=== PATIENT | male | born 1990 | race Caucasian/White ===

== ENCOUNTER 2019-11-05 15:53 | Observation (INO) | payer OTHER, SELFPAY ==
[2019-11-05] VITALS (14 sets, daily range): BP systolic 125–166; BP diastolic 65–92; PULSE 73–89; RESP 13–23; TEMP 36.5–36.8; O2SAT 95–99; BMI 28.2
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
--- NOTE | 2019-11-05 16:23 | ED_ITS ---
HPI - Trauma <JOANNE Morse- - Last Filed: 11/05/19 21:12> General Chief Complaint: Trauma Stated Complaint: large pipe fell on left leg Time Seen by Provider: 11/05/19 16:00 Source: patient Mode of arrival: Ambulatory Limitations: no limitations History of Present Illness HPI narrative: The patient is a 29-year-old male current some day smoker who has a history of surgery to his left to presents with a chief complaint of a large pipe having fallen on his left leg. He states that approximately 600 lb 9 ft pipe fell just below his left knee at work, then it rolled up onto his chest and abdomen. He denies any abdominal pain, chest pain or shortness of breath. He ambulates into the emergency department without assistance. He does not know when his last tetanus vaccination was. He has not taken anything for pain or applied ice. He states he has an abrasion just below his left knee where the initial impact was. The patient states that when he fell backwards, heal on its backside, did not hit his head, denies any neck or back pain. This accident happened approximately 3:00 p.m.. Related Data Home Medications Medication Instructions Recorded Confirmed No Known Home Medications 11/05/19 11/05/19 Allergies Allergy/AdvReac Type Severity Reaction Status Date / Time No Known Drug Allergies Allergy Verified 11/05/19 18:44 Review of Systems <DALE Morse - Last Filed: 11/05/19 21:12> Review of Systems Narrative: GENERAL: Denies chills, fatigue, malaise, fever, sweats. HEENT: Denies sinus pain, ear pain, sore throat, difficulty swallowing, dizziness. RESPIRATORY: Denies dyspnea, cough, wheezing, hemoptysis, sputum. CARDIOVASCULAR: Denies chest pain, palpitations, orthopnea, edema, GASTROINTESTINAL: Denies nausea, vomiting, abdominal pain, diarrhea, constipation, melena. : Denies dysuria, frequency, incontinence, hematuria, urinary retention. MUSCULOSKELETAL: See HPI SKIN: See HPI NEUROLOGIC: Denies weakness, headache, numbness, change in speech, confusion, seizures, incoordination. PSYCHIATRIC: No concerning psychosocial issues. 12 point review of systems is negative except for those stated above Patient History <DALE MorsePRISCILLA - Last Filed: 11/05/19 21:12> Medical History (Updated 11/06/19 @ 00:17 by FAVIOLA Ramachandran) No significant past medical history (Acute) Surgical History History of foot surgery (Acute) History of surgery on left wrist (Acute) Social History household members: significant other and children Smoking Status: Current some day smoker alcohol intake: current Smoking Status: Current some day smoker alcohol intake frequency: holidays/special occasions only Substance Use Type: does not use Exam <ADIS Morse - Last Filed: 11/05/19 21:12> Narrative Exam Narrative: GENERAL: This is a well-nourished, well-developed patient, in no acute distress HEAD: Atraumatic. Normocephalic. No temporal or scalp tenderness. EYES: Pupils equal round and reactive. Extraocular motions intact. No scleral icterus. No injection or drainage. ENT: Nose without bleeding, purulent drainage or septal hematoma. Throat without erythema, tonsillar hypertrophy or exudate. Uvula midline. Airway patent. NECK: Trachea midline. No JVD or lymphadenopathy. Supple, nontender, no meningeal signs. CARDIOVASCULAR: Regular rate and rhythm RESPIRATORY: Clear to auscultation. Breath sounds equal bilaterally. No wheezes, rales, or rhonchi. No cough. No increased respiratory effort. No accessory muscle use. GASTROINTESTINAL: Abdomen soft, non-tender, nondistended. No hepato- splenomegaly, or palpable masses. No guarding. No hematomas or visible bruising. Active bowel sounds all 4 quadrants. EXTREMITIES: Abrasion as noted on left knee. General pain to palpation left knee left calf muscle. Compartments are soft to palpation, positive pedal pulses, capillary refill less than 2 seconds left foot. Able to flex extend pronate supinate left ankle. Ecchymosis noted on distal superior gastroc area. Sensation intact throughout left lower leg. BACK: Nontender without deformity or crepitance. No flank tenderness. NEURO: AOx3. SKIN: 0 1 x 2 cm abrasion noted distal to left knee anterior aspect. Initial Vital Signs Initial Vital Signs: Vital Signs Temperature 97.7 F 11/05/19 16:05 Pulse Rate 84 09/24/20 16:05 Respiratory Rate 11/05/19 16:05 Blood Pressure 166/86 H 11/05/19 16:05 Pulse Oximetry 97 11/05/19 16:05 <Lex Perez MD - Last Filed: 11/06/19 00:31> Initial Vital Signs Initial Vital Signs: Vital Signs Temperature 97.7 F 11/05/19 16:05 Pulse Rate 84 11/05/19 16:05 Respiratory Rate 11/05/19 16:05 Blood Pressure 166/86 H 11/05/19 16:05 Pulse Oximetry 97 11/05/19 16:05 Scores <ADIS Morse - Last Filed: 11/05/19 21:12> GCS [place] coma scale eye opening: Spontaneous [place] coma scale verbal response: Orientated Gustavo coma scale motor response: Obey commands Gustavo coma scale total score: 15 Course <ADIS Morse - Last Filed: 11/05/19 21:12> Orders Ordered: ED Orders 11/05/19 16:09 XR tibia fibula LT 2V Stat 11/05/19 16:10 XR chest 1V Stat 11/05/19 16:20 Complete Blood Count AUTO DIFF Stat Comprehensive Metabolic Panel Stat Creatine Kinase Stat Ethanol (ETOH) Stat Lactate (Lactic Acid) Urgent Lipase Stat Partial Thromboplastin Time Stat Prothrombin Time INR Stat Type and Screen Stat 11/05/19 19:48 Creatine Kinase Stat 11/05/19 20:10 COVID19 -ED/INPAT/OR/L&D Stat Acetaminophen (Tylenol) 650 mg PO Q6HR PRN PRN Reason: Fever/Mild Pain (1-3) Bisacodyl (Dulcolax) 10 mg RI DAILY PRN PRN Reason: Constipation Cyclobenzaprine HCl (Flexeril) 10 mg PO TID PRN PRN Reason: Muscle Spasm Docusate Sodium (Colace) 100 mg PO BID ESME Enoxaparin Sodium (Lovenox) 40 mg SUBCUT DAILY REPLACED BY [facility] Sodium Chloride (Normal Saline 0.9%) 1,000 mls @ 125 mls/hr IV CONT ESME Morphine Sulfate (Morphine) 2 mg IV Q4HR PRN PRN Reason: Pain, Moderate (4-6) Morphine Sulfate (Morphine) 4 mg IV Q4HR PRN PRN Reason: Pain, Severe (7-10) Naloxone HCl (Narcan) 0.2 mg IV Q2MIN PRN PRN Reason: Opiate Reversal Ondansetron HCl (Zofran) 4 mg IV Q8HR PRN PRN Reason: Nausea And Vomiting Oxycodone/Acetaminophen (Percocet 5/325) 1 tab PO Q4HR PRN PRN Reason: Pain, Moderate (4-6) Oxycodone/Acetaminophen (Percocet 5/325) 2 tab PO Q4HR PRN PRN Reason: Pain, Severe (7-10) Discontinued Medications Cyclobenzaprine HCl (Flexeril) 10 mg PO NOW ONE Stop: 11/05/19 17:38 Last Admin: 11/05/19 17:58 Dose: 10 mg Documented by: SILVIANO Diphtheria/Tetanus/Acell Pertussis (Adacel) 0.5 ml IM .ONCE ONE Stop: 11/05/19 16:10 Last Admin: 11/05/19 17:00 Dose: 0.5 ml Documented by: SANTOSH Sodium Chloride (Normal Saline 0.9%) 1,000 mls @ 1,000 mls/hr IV BOLUS ONE Stop: 11/05/19 17:18 Last Infusion: 11/05/19 18:35 Dose: 0 mls/hr Documented by: Admin: 11/05/19 16:59 Dose: 1,000 mls/hr Documented by: SANTOSH Sodium Chloride (Normal Saline 0.9%) 1,000 mls @ 1,000 mls/hr IV BOLUS ONE Stop: 11/05/19 18:36 Last Infusion: 11/05/19 19:36 Dose: 0 mls/hr Documented by: Admin: 11/05/19 18:16 Dose: 1,000 mls/hr Documented by: SANTOSH Sodium Chloride (Normal Saline 0.9%) 1,000 mls @ 250 mls/hr IV CONT ESME Stop: 11/05/19 22:48 Last Infusion: 11/05/19 22:10 Dose: 250 mls/hr Documented by: Admin: 11/05/19 20:20 Dose: 250 mls/hr Documented by: SANTOSH Morphine Sulfate (Morphine) 4 mg IV NOW ONE Stop: 11/05/19 17:38 Last Admin: 11/05/19 17:58 Dose: 4 mg Documented by: SILVIANO Morphine Sulfate (Morphine) 4 mg IV NOW ONE Stop: 11/05/19 20:10 Last Admin: 11/05/19 20:19 Dose: 4 mg Documented by: SANTOSH Vital Signs Vital signs: Vital Signs - 8 hr 11/05/19 17:00 11/05/19 17:30 11/05/19 18:00 Pulse Rate 73 78 78 Respiratory Rate 13 21 20 Blood Pressure 142/87 H 145/92 H 136/89 Pulse Oximetry 99 99 99 11/05/19 18:30 11/05/19 19:00 11/05/19 19:30 Pulse Rate 74 79 82 Respiratory Rate 19 16 20 Blood Pressure 136/82 144/88 H 145/82 H Pulse Oximetry 99 99 99 11/05/19 20:00 11/05/19 20:30 11/05/19 21:00 Pulse Rate 89 79 83 Respiratory Rate 17 23 18 Blood Pressure 145/85 H 129/85 Pulse Oximetry 98 97 97 11/05/19 21:01 Pulse Rate 76 Respiratory Rate 19 Blood Pressure 125/66 Pulse Oximetry 98 <Lex Perez MD - Last Filed: 11/06/19 00:31> Orders Ordered: ED Orders 11/05/19 16:09 XR tibia fibula LT 2V Stat 11/05/19 16:10 XR chest 1V Stat 11/05/19 16:20 Complete Blood Count AUTO DIFF Stat Comprehensive Metabolic Panel Stat Creatine Kinase Stat Ethanol (ETOH) Stat Lactate (Lactic Acid) Urgent Lipase Stat Partial Thromboplastin Time Stat Prothrombin Time INR Stat Type and Screen Stat 11/05/19 19:48 Creatine Kinase Stat 11/05/19 20:10 COVID19 -ED/INPAT/OR/L&D Stat Acetaminophen (Tylenol) 650 mg PO Q6HR PRN PRN Reason: Fever/Mild Pain (1-3) Bisacodyl (Dulcolax) 10 mg RI DAILY PRN PRN Reason: Constipation Cyclobenzaprine HCl (Flexeril) 10 mg PO TID PRN PRN Reason: Muscle Spasm Docusate Sodium (Colace) 100 mg PO BID ESME Enoxaparin Sodium (Lovenox) 40 mg SUBCUT DAILY REPLACED BY [facility] Sodium Chloride (Normal Saline 0.9%) 1,000 mls @ 125 mls/hr IV CONT ESME Morphine Sulfate (Morphine) 2 mg IV Q4HR PRN PRN Reason: Pain, Moderate (4-6) Morphine Sulfate (Morphine) 4 mg IV Q4HR PRN PRN Reason: Pain, Severe (7-10) Naloxone HCl (Narcan) 0.2 mg IV Q2MIN PRN PRN Reason: Opiate Reversal Ondansetron HCl (Zofran) 4 mg IV Q8HR PRN PRN Reason: Nausea And Vomiting Oxycodone/Acetaminophen (Percocet 5/325) 1 tab PO Q4HR PRN PRN Reason: Pain, Moderate (4-6) Oxycodone/Acetaminophen (Percocet 5/325) 2 tab PO Q4HR PRN PRN Reason: Pain, Severe (7-10) Discontinued Medications Cyclobenzaprine HCl (Flexeril) 10 mg PO NOW ONE Stop: 11/05/19 17:38 Last Admin: 11/05/19 17:58 Dose: 10 mg Documented by: SILVIANO Diphtheria/Tetanus/Acell Pertussis (Adacel) 0.5 ml IM .ONCE ONE Stop: 11/05/19 16:10 Last Admin: 11/05/19 17:00 Dose: 0.5 ml Documented by: VENANCIOO Sodium Chloride (Normal Saline 0.9%) 1,000 mls @ 1,000 mls/hr IV BOLUS ONE Stop: 11/05/19 17:18 Last Infusion: 11/05/19 18:35 Dose: 0 mls/hr Documented by: Admin: 11/05/19 16:59 Dose: 1,000 mls/hr Documented by: VENANCIOO Sodium Chloride (Normal Saline 0.9%) 1,000 mls @ 1,000 mls/hr IV BOLUS ONE Stop: 11/05/19 18:36 Last Infusion: 11/05/19 19:36 Dose: 0 mls/hr Documented by: Admin: 11/05/19 18:16 Dose: 1,000 mls/hr Documented by: SANTOSH Sodium Chloride (Normal Saline 0.9%) 1,000 mls @ 250 mls/hr IV CONT ESME Stop: 11/05/19 22:48 Last Infusion: 11/05/19 22:10 Dose: 250 mls/hr Documented by: Admin: 11/05/19 20:20 Dose: 250 mls/hr Documented by: SANTOSH Morphine Sulfate (Morphine) 4 mg IV NOW ONE Stop: 11/05/19 17:38 Last Admin: 11/05/19 17:58 Dose: 4 mg Documented by: SILVIANO Morphine Sulfate (Morphine) 4 mg IV NOW ONE Stop: 11/05/19 20:10 Last Admin: 11/05/19 20:19 Dose: 4 mg Documented by: SANTOSH Vital Signs Vital signs: Vital Signs - 8 hr 11/05/19 17:00 11/05/19 17:30 11/05/19 18:00 Pulse Rate 73 78 78 Respiratory Rate 13 21 20 Blood Pressure 142/87 H 145/92 H 136/89 Pulse Oximetry 99 99 99 11/05/19 18:30 11/05/19 19:00 11/05/19 19:30 Pulse Rate 74 79 82 Respiratory Rate 19 16 20 Blood Pressure 136/82 144/88 H 145/82 H Pulse Oximetry 99 99 99 11/05/19 20:00 11/05/19 20:30 11/05/19 21:00 Pulse Rate 89 79 83 Respiratory Rate 17 23 18 Blood Pressure 145/85 H 129/85 Pulse Oximetry 98 97 97 11/05/19 21:01 Pulse Rate 76 Respiratory Rate 19 Blood Pressure 125/66 Pulse Oximetry 98 MDM - Trauma <MERCED MorseP-BC - Last Filed: 11/05/19 21:12> Lab Data Result diagrams: 11/05/19 16:20 11/05/19 16:20 Labs: Lab Results 11/05/19 11/05/19 11/05/19 Range/Units 16:20 16:20 16:20 WBC 9.7 (4.5-11.0) X10^3/uL RBC 4.58 (4.5-5.9) X10^6/uL Hgb 15.0 (13.5-17.5) g/dL Hct 43.0 (41-53) % MCV 94.1 (80-100) fL MCH 32.8 (26-34) PG MCHC 34.8 (30-36) % RDW 13.9 (11.6-14.8) % Plt Count 206 (150-400) X10^3/uL Neut % (Auto) 49.3 L (50-75) % Lymph % (Auto) 40.4 H (25-40) % Gates % (Auto) 8.3 (3-14) % Eos % (Auto) 1.5 L (2-4) % Baso % (Auto) 0.5 (0-2) % Neut # (Auto) 4800 (1060-8455) /uL Lymph # (Auto) 3900 (5085-9628) /uL Gates # (Auto) 800 (0-900) /uL Eos # (Auto) 100 (0-450) /uL Baso # (Auto) 100 (0-100) /uL PT 11.6 (10.1-12.7) SECONDS INR 1.0 (0.9-1.3) APTT 28 (26.4-36.2) SECONDS Sodium (137-145) mmol/L Potassium (3.4-5.1) mmol/L Chloride (98-107) mmol/L Carbon Dioxide (22-32) mmol/L BUN (9-20) mg/dL Creatinine (0.66-1.25) mg/dL Estimated GFR (>60) mL/min BUN/Creatinine Ratio (6-22) Glucose (70-100) mg/dL Lactate 0.8 (0.7-2.1) mmol/L Calcium (8.4-10.2) mg/dL Total Bilirubin (0.2-1.3) mg/dL AST (17-59) IU/L ALT (<50) IU/L Alkaline Phosphatase (38-126) U/L Total Creatine Kinase (55-170) U/L Total Protein (6.3-8.2) g/dL Albumin (3.5-5.0) g/dL Globulin (1.7-4.1) g/dL Albumin/Globulin Ratio (1.0-2.8) Lipase (23-300) U/L Ethyl Alcohol ( - 10) mg/dL COVID-19 PCR (Negative) Blood Type Antibody Screen 11/05/19 11/05/19 11/05/19 Range/Units 16:20 16:20 16:20 WBC (4.5-11.0) X10^3/uL RBC (4.5-5.9) X10^6/uL Hgb (13.5-17.5) g/dL Hct (41-53) % MCV (80-100) fL MCH (26-34) PG MCHC (30-36) % RDW (11.6-14.8) % Plt Count (150-400) X10^3/uL Neut % (Auto) (50-75) % Lymph % (Auto) (25-40) % Gates % (Auto) (3-14) % Eos % (Auto) (2-4) % Baso % (Auto) (0-2) % Neut # (Auto) (4320-3143) /uL Lymph # (Auto) (8862-1307) /uL Gates # (Auto) (0-900) /uL Eos # (Auto) (0-450) /uL Baso # (Auto) (0-100) /uL PT (10.1-12.7) SECONDS INR (0.9-1.3) APTT (26.4-36.2) SECONDS Sodium 138 (137-145) mmol/L Potassium 3.7 (3.4-5.1) mmol/L Chloride 103 (98-107) mmol/L Carbon Dioxide 31 (22-32) mmol/L BUN 13 (9-20) mg/dL Creatinine 1.27 H (0.66-1.25) mg/dL Estimated GFR > 60.0 (>60) mL/min BUN/Creatinine Ratio 10.2 (6-22) Glucose 91 (70-100) mg/dL Lactate (0.7-2.1) mmol/L Calcium 9.1 (8.4-10.2) mg/dL Total Bilirubin 0.6 (0.2-1.3) mg/dL AST 40 (17-59) IU/L ALT 27 (<50) IU/L Alkaline Phosphatase 70 (38-126) U/L Total Creatine Kinase 1090 H (55-170) U/L Total Protein 7.1 (6.3-8.2) g/dL Albumin 4.5 (3.5-5.0) g/dL Globulin 2.6 (1.7-4.1) g/dL Albumin/Globulin Ratio 1.7 (1.0-2.8) Lipase 56 (23-300) U/L Ethyl Alcohol < 10 ( - 10) mg/dL COVID-19 PCR (Negative) Blood Type O Positive Antibody Screen Negative 11/05/19 11/05/19 Range/Units 19:48 20:10 WBC (4.5-11.0) X10^3/uL RBC (4.5-5.9) X10^6/uL Hgb (13.5-17.5) g/dL Hct (41-53) % MCV (80-100) fL MCH (26-34) PG MCHC (30-36) % RDW (11.6-14.8) % Plt Count (150-400) X10^3/uL Neut % (Auto) (50-75) % Lymph % (Auto) (25-40) % Gates % (Auto) (3-14) % Eos % (Auto) (2-4) % Baso % (Auto) (0-2) % Neut # (Auto) (2134-2183) /uL Lymph # (Auto) (9203-1009) /uL Gates # (Auto) (0-900) /uL Eos # (Auto) (0-450) /uL Baso # (Auto) (0-100) /uL PT (10.1-12.7) SECONDS INR (0.9-1.3) APTT (26.4-36.2) SECONDS Sodium (137-145) mmol/L Potassium (3.4-5.1) mmol/L Chloride (98-107) mmol/L Carbon Dioxide (22-32) mmol/L BUN (9-20) mg/dL Creatinine (0.66-1.25) mg/dL Estimated GFR (>60) mL/min BUN/Creatinine Ratio (6-22) Glucose (70-100) mg/dL Lactate (0.7-2.1) mmol/L Calcium (8.4-10.2) mg/dL Total Bilirubin (0.2-1.3) mg/dL AST (17-59) IU/L ALT (<50) IU/L Alkaline Phosphatase (38-126) U/L Total Creatine Kinase 983 H (55-170) U/L Total Protein (6.3-8.2) g/dL Albumin (3.5-5.0) g/dL Globulin (1.7-4.1) g/dL Albumin/Globulin Ratio (1.0-2.8) Lipase (23-300) U/L Ethyl Alcohol ( - 10) mg/dL COVID-19 PCR Negative (Negative) Blood Type Antibody Screen Urine Dip Bedside Urine Glucose Negative Bedside Urine Bilirubin - Negative Bedside Urine Ketone - Negative Urine Specific [place] 1.025 Bedside Urine Occult Blood - Negative Bedside Urine pH 6.0 Bedside Urine Protein - Negative Bedside Urine Urobilinogen - Negative Bedside Urine Nitrite - Negative Bedside Urine Leukocytes - Negative Esterase Imaging Data Extremity x-ray #1: Radiologist's Impression: [address] [place] [id number] XRay Report Signed Patient: Jayehs Zabala JMR#: [id number] : 1990Acct:[id number] Age/Sex: 29 / MDate of Service: 11/05/19 Loc: ED Accession Number: [id number] Procedure: XR tibia fibula LT 2V Ordering Provider: Deanne Walsh PROCEDURE: XR TIBIA FIBULA RT 2V INDICATIONS: hit with 600 lb pipe TECHNIQUE: 2 views of the tibia and fibula were acquired. COMPARISON: None. FINDINGS: Bones: No fractures or dislocations. No suspicious bony lesions. Soft tissues: No suspicious soft tissue calcifications or masses. IMPRESSION: No evidence acute bony abnormality of the left tibia and fibula Dictated by: Johny Oliver M.D. on 11/05/2019 at 17:06 Approved by: Johny Oliver M.D. on 11/05/2019 at 17:07 Chest x-ray: Radiologist's Impression: [address] [place] [id number] XRay Report Signed Patient: Jayesh Zabala JMR#: [id number] : 1990Acct:[id number] Age/Sex: 29 / MDate of Service: 11/05/19 Loc: ED Accession Number: [id number] Procedure: XR chest 1V Ordering Provider: Deanne Walsh PROCEDURE: XR CHEST 1V INDICATIONS: ? hit with 600 lb pipe TECHNIQUE: One view of the chest was acquired. COMPARISON: None. FINDINGS: Surgical changes and devices: None. Lungs and pleura: Lungs are clear. No pleural effusions or pneumothorax. Mediastinum: Mediastinal contours appear normal. Heart size is normal. Bones and chest wall: No suspicious bony lesions. Overlying soft tissues appear unremarkable. IMPRESSION: No evidence acute pulmonary process. Dictated by: Johny Oliver M.D. on 11/05/2019 at 17:06 Approved by: Johny Oliver M.D. on 11/05/2019 at 17:06 [facility] Narrative Medical decision making narrative: The patient is a 29-year-old male who presents with a chief complaint of a crush injury to his left leg by 600 lb plastic pipe. He is neurovascularly intact with his left lower leg, denies any chest pain shortness of breath or abdominal pain during my evaluation. He has been hemodynamically stable throughout his stay. He does have slight tingling just distal to his tibial plateau, but is able to identify by touch. He has good pulses. He initially has an elevated CK of just over 1000, received 2 L of IV fluid. I did speak with Dr. Joyce from [facility] as the patient is at high risk of compartment syndrome. He states that the patient should be admitted overnight for observation and neurovascular checks. The patient is okay with this. I spoke with Arden SALMERON regarding the patient who kindly accepted him for observation. I did speak with Dr. Alcantara per Arden's request regarding the patient's admission as the patient was activated as a modified trauma. The patient's tetanus is updated receive pain medication throughout his stay in the emergency department. The patient is able to flex extend pronate and supinate his right ankle. He ambulated into the emergency department and denies any needs throughout his stay <Lex Perez MD - Last Filed: 11/06/19 00:31> Lab Data Labs: Lab Results 11/05/19 11/05/19 11/05/19 Range/Units 16:20 16:20 16:20 WBC 9.7 (4.5-11.0) X10^3/uL RBC 4.58 (4.5-5.9) X10^6/uL Hgb 15.0 (13.5-17.5) g/dL Hct 43.0 (41-53) % MCV 94.1 (80-100) fL MCH 32.8 (26-34) PG MCHC 34.8 (30-36) % RDW 13.9 (11.6-14.8) % Plt Count 206 (150-400) X10^3/uL Neut % (Auto) 49.3 L (50-75) % Lymph % (Auto) 40.4 H (25-40) % Gates % (Auto) 8.3 (3-14) % Eos % (Auto) 1.5 L (2-4) % Baso % (Auto) 0.5 (0-2) % Neut # (Auto) 4800 (3377-5040) /uL Lymph # (Auto) 3900 (9952-1572) /uL Gates # (Auto) 800 (0-900) /uL Eos # (Auto) 100 (0-450) /uL Baso # (Auto) 100 (0-100) /uL PT 11.6 (10.1-12.7) SECONDS INR 1.0 (0.9-1.3) APTT 28 (26.4-36.2) SECONDS Sodium (137-145) mmol/L Potassium (3.4-5.1) mmol/L Chloride (98-107) mmol/L Carbon Dioxide (22-32) mmol/L BUN (9-20) mg/dL Creatinine (0.66-1.25) mg/dL Estimated GFR (>60) mL/min BUN/Creatinine Ratio (6-22) Glucose (70-100) mg/dL Lactate 0.8 (0.7-2.1) mmol/L Calcium (8.4-10.2) mg/dL Total Bilirubin (0.2-1.3) mg/dL AST (17-59) IU/L ALT (<50) IU/L Alkaline Phosphatase (38-126) U/L Total Creatine Kinase (55-170) U/L Total Protein (6.3-8.2) g/dL Albumin (3.5-5.0) g/dL Globulin (1.7-4.1) g/dL Albumin/Globulin Ratio (1.0-2.8) Lipase (23-300) U/L Ethyl Alcohol ( - 10) mg/dL COVID-19 PCR (Negative) Blood Type Antibody Screen 11/05/19 11/05/19 11/05/19 Range/Units 16:20 16:20 16:20 WBC (4.5-11.0) X10^3/uL RBC (4.5-5.9) X10^6/uL Hgb (13.5-17.5) g/dL Hct (41-53) % MCV (80-100) fL MCH (26-34) PG MCHC (30-36) % RDW (11.6-14.8) % Plt Count (150-400) X10^3/uL Neut % (Auto) (50-75) % Lymph % (Auto) (25-40) % Gates % (Auto) (3-14) % Eos % (Auto) (2-4) % Baso % (Auto) (0-2) % Neut # (Auto) (2952-7098) /uL Lymph # (Auto) (0309-2230) /uL Gates # (Auto) (0-900) /uL Eos # (Auto) (0-450) /uL Baso # (Auto) (0-100) /uL PT (10.1-12.7) SECONDS INR (0.9-1.3) APTT (26.4-36.2) SECONDS Sodium 138 (137-145) mmol/L Potassium 3.7 (3.4-5.1) mmol/L Chloride 103 (98-107) mmol/L Carbon Dioxide 31 (22-32) mmol/L BUN 13 (9-20) mg/dL Creatinine 1.27 H (0.66-1.25) mg/dL Estimated GFR > 60.0 (>60) mL/min BUN/Creatinine Ratio 10.2 (6-22) Glucose 91 (70-100) mg/dL Lactate (0.7-2.1) mmol/L Calcium 9.1 (8.4-10.2) mg/dL Total Bilirubin 0.6 (0.2-1.3) mg/dL AST 40 (17-59) IU/L ALT 27 (<50) IU/L Alkaline Phosphatase 70 (38-126) U/L Total Creatine Kinase 1090 H (55-170) U/L Total Protein 7.1 (6.3-8.2) g/dL Albumin 4.5 (3.5-5.0) g/dL Globulin 2.6 (1.7-4.1) g/dL Albumin/Globulin Ratio 1.7 (1.0-2.8) Lipase 56 (23-300) U/L Ethyl Alcohol < 10 ( - 10) mg/dL COVID-19 PCR (Negative) Blood Type O Positive Antibody Screen Negative 11/05/19 11/05/19 Range/Units 19:48 20:10 WBC (4.5-11.0) X10^3/uL RBC (4.5-5.9) X10^6/uL Hgb (13.5-17.5) g/dL Hct (41-53) % MCV (80-100) fL MCH (26-34) PG MCHC (30-36) % RDW (11.6-14.8) % Plt Count (150-400) X10^3/uL Neut % (Auto) (50-75) % Lymph % (Auto) (25-40) % Gates % (Auto) (3-14) % Eos % (Auto) (2-4) % Baso % (Auto) (0-2) % Neut # (Auto) (3349-6008) /uL Lymph # (Auto) (7089-4748) /uL Gates # (Auto) (0-900) /uL Eos # (Auto) (0-450) /uL Baso # (Auto) (0-100) /uL PT (10.1-12.7) SECONDS INR (0.9-1.3) APTT (26.4-36.2) SECONDS Sodium (137-145) mmol/L Potassium (3.4-5.1) mmol/L Chloride (98-107) mmol/L Carbon Dioxide (22-32) mmol/L BUN (9-20) mg/dL Creatinine (0.66-1.25) mg/dL Estimated GFR (>60) mL/min BUN/Creatinine Ratio (6-22) Glucose (70-100) mg/dL Lactate (0.7-2.1) mmol/L Calcium (8.4-10.2) mg/dL Total Bilirubin (0.2-1.3) mg/dL AST (17-59) IU/L ALT (<50) IU/L Alkaline Phosphatase (38-126) U/L Total Creatine Kinase 983 H (55-170) U/L Total Protein (6.3-8.2) g/dL Albumin (3.5-5.0) g/dL Globulin (1.7-4.1) g/dL Albumin/Globulin Ratio (1.0-2.8) Lipase (23-300) U/L Ethyl Alcohol ( - 10) mg/dL COVID-19 PCR Negative (Negative) Blood Type Antibody Screen Urine Dip Bedside Urine Glucose Negative Bedside Urine Bilirubin - Negative Bedside Urine Ketone - Negative Urine Specific [place] 1.025 Bedside Urine Occult Blood - Negative Bedside Urine pH 6.0 Bedside Urine Protein - Negative Bedside Urine Urobilinogen - Negative Bedside Urine Nitrite - Negative Bedside Urine Leukocytes - Negative Esterase Discharge Plan Departure Patient Disposition: Admitted as Observation Clinical Impression: Crush injury, Abrasion, Elevated CK Discharge Date/Time: 11/05/19 22:00 Admit Date/Time: 11/05/19 21:13 Admit Provider: Allen Her <Lex Perez MD - Last Filed: 11/06/19 00:31> Cosign ED Attending Cosignature Attestation: [facility]. This documentation has been reviewed and I agree with assessment and plan. Supervised by Lex Perez MD
[2019-11-05 16:40] LABS: Prothrombin Time 11.6 SECONDS (10.1-12.7)
[2019-11-05 16:43] LABS: PTT Partial Thromboplastin Tim 28 SECONDS (26.4-36.2)
[2019-11-05 16:44] LABS: Creatine Kinase 1090 U/L (55-170)
[2019-11-05 16:45] LABS: Alanine Aminotransferase 27 IU/L (<50); Albumin 4.5 g/dL (3.5-5.0); Albumin Globulin Ratio 1.7 (1.0-2.8); Alkaline Phosphatase 70 U/L (38-126); Aspartate Aminotransferase 40 IU/L (17-59); BUN Creatinine Ratio 10.2 (6-22); Bilirubin Total 0.6 mg/dL (0.2-1.3); Blood Urea Nitrogen 13 mg/dL (9-20); Calcium 9.1 mg/dL (8.4-10.2); Carbon Dioxide 31 mmol/L (22-32); Chloride 103 mmol/L (98-107); Estimated Glomerular Filt Rate > 60.0 mL/min (>60); Ethanol (ETOH) < 10 mg/dL; Globulin 2.6 g/dL (1.7-4.1); Glucose 91 mg/dL (70-100); HEMOLYSIS < 15 (0-50); Lactate (Lactic Acid) 0.8 mmol/L (0.7-2.1); Lipase 56 U/L (23-300); Potassium 3.7 mmol/L (3.4-5.1); Sodium 138 mmol/L (137-145); Total Protein 7.1 g/dL (6.3-8.2)
[2019-11-05 16:48] LABS: Add Manual Diff / Slide Review NO; Basophils Absolute Auto 100 /uL (0-100); Basophils Percent Auto 0.5 % (0-2); Eosinophils Absolute Auto 100 /uL (0-450); Eosinophils Percent Auto 1.5 % (2-4); Lymphocytes Absolute Auto 3900 /uL (1100-4500); Lymphocytes Percent Auto 40.4 % (25-40); Mean Corpuscular HGB Conc 34.8 % (30-36); Mean Corpuscular Hemoglobin 32.8 PG (26-34); Mean Corpuscular Volume 94.1 fL (80-100); Monocytes Absolute Auto 800 /uL (0-900); Monocytes Percent Auto 8.3 % (3-14); Neutrophils Absolute Auto 4800 /uL (1500-7000); Neutrophils Percent Auto 49.3 % (50-75); Platelet Count 206 X10^3/uL (150-400); Red Blood Cell Count 4.58 X10^6/uL (4.5-5.9); Red Cell Distribution Width 13.9 % (11.6-14.8); White Blood Cell Count 9.7 X10^3/uL (4.5-11.0)
[2019-11-05] MEDS: SODIUM CHLORIDE 0.9% 1,000 ML 1000 ML IV ×2 (16:59→18:16)
[2019-11-05] MEDS: TET,DIPH,PERTUSS(ACELL),VAC/PF 0.5 ML SYRINGE IM (17:00)
[2019-11-05] MEDS: CYCLOBENZAPRINE 10 MG TABLET PO (17:58)
[2019-11-05] MEDS: MORPHINE 4 MG/ML INJ IV ×2 (17:58→20:19)
[2019-11-05 19:58] LABS: Creatine Kinase 983 U/L (55-170)
[2019-11-05] MEDS: SODIUM CHLORIDE 0.9% 1,000 ML 250 ML IV (20:20)
[2019-11-05 20:37] LABS: COVID19 -Nasal RAPID Negative (Negative)
--- NOTE | 2019-11-06 00:04 | P.HP_ITS ---
History of Present Illness History of Present Illness Date Patient Seen: 11/06/19 Time Patient Seen: 23:10 Chief complaint: large pipe fell on left leg Narrative: Mr. Jayesh Zabala is a 29-year-old male with no significant medical history who is ambulatory presenting to the ER following traumatic injury while working at the [employer]. The patient states a 600 lb plastic tube fell onto his right leg and rolled over him to the abdomen and chest. Sustained a crushing injury to the left leg and upon arrival to the ER had associated symptoms of abdominal muscle spasms. His chief complaint is left knee and proximal lower leg pain greatest over the medial aspect of the knee with altered sensation lateral to the tibial tubercle where he can feel pressure but not sharp. He reports he is able to bear weight following the accident and denies numbness or tingling or weakness in the left ankle or foot. He denies head injury, loss of conscious, neck or back injury. He denies complaints of chest pain or shortness of breath and has had no cough. He denies epigastric or abdominal pain, no heartburn or nausea or vomiting. He has no flank pain and had no difficulty urinating and denies frequency urgency or hematuria. Upon arrival to the ER the patient has heart rate of 79, blood pressure 144/88, respirations 16 saturating 99% on room air. Chest x-rays taken which finds no acute cardiopulmonary pathology and x-rays of the left tibia fibula finds no bony abnormalities. He has a white count of 9.7, hemoglobin of 15 and hematocrit of 30.0. His platelets are 206. His PT is 11.6 with an INR 1.0 and a PTT of 28. His electrolytes are all within normal limits and has a BUN of 13 and creatinine 1 point 2 7. His nonfasting glucose is 91. His liver functions are all within normal limits. Lactic acid 0.8 and his total CK was initially 10 90 that following 2 L of fluid has decreased to 983. In the ER the patient received cyclobenzaprine 10 mg for abdominal muscle spasms, morphine 4 mg x 2 2 L of saline and his tetanus was updated. Dr. Joyce was contacted and agreed to consult. Dr. Alcantara was notified as the patient was a modified trauma. Patient is admitted to the medicine service for crush injury of left lower extremity for neurovascular monitoring. The patient has no primary care provider. Patient History Medical History (Updated 11/06/19 @ 00:17 by FAVIOLA Ramachandran) No significant past medical history (Acute) Surgical History History of foot surgery (Acute) History of surgery on left wrist (Acute) Family & Social History Family history unavailable: No (Patient is adopted and family history is unknown.) Social History: household members significant other,children Prior Living Arrangements House Safety & Behavioral: Feels Safe in Current Yes Environment Been Physically Hurt or No Threatened By a Person Suicidal Ideation Description None Tobacco & Substance use: Tobacco type cigarettes Smoking Status Current some day smoker alcohol intake current alcohol intake frequency holiday/special occasion Substance Use Type does not use Meds Home Medications and Allergies Home Medications Medication Instructions Recorded Confirmed Type No Known Home Medications 11/05/19 11/05/19 History Allergies Allergy/AdvReac Type Severity Reaction Status Date / Time No Known Drug Allergies Allergy Verified 11/05/19 18:44 Review of Systems Review of Systems ROS: Yes All systems reviewed with the patient and are negative except as otherwise documented Exam Vital Signs (past 8 hours): - 11/05/19 16:05 11/05/19 16:30 11/05/19 17:00 Temperature 97.7 F Pulse Rate 84 87 73 Respiratory Rate 19 13 Blood Pressure 166/86 H 134/82 142/87 H Pulse Oximetry 97 98 99 11/05/19 17:30 11/05/19 18:00 11/05/19 18:30 Temperature Pulse Rate 78 78 74 Respiratory Rate 21 20 19 Blood Pressure 145/92 H 136/89 136/82 Pulse Oximetry 99 99 99 11/05/19 19:00 11/05/19 19:30 11/05/19 20:00 Temperature Pulse Rate 79 82 89 Respiratory Rate 16 20 17 Blood Pressure 144/88 H 145/82 H 145/85 H Pulse Oximetry 99 99 98 11/05/19 20:30 11/05/19 21:00 11/05/19 21:01 Temperature Pulse Rate 79 83 76 Respiratory Rate 23 18 19 Blood Pressure 129/85 125/66 Pulse Oximetry 97 97 98 11/05/19 22:07 Temperature 98.2 F Pulse Rate 85 Respiratory Rate 17 Blood Pressure 131/65 Pulse Oximetry 95 Oxygen Delivery Method Room Air Narrative Exam Narrative: GENERAL APPEARANCE: well developed, well nourished, in no acute distress. HEENT: Atraumatic, PERRLA, conjunctiva clear, EOMs intact without nystagmus, no sinus tenderness to percussion, no rhinorrhea, mucous membranes are moist and pink without lesions or exudate. NECK/THYROID: Supple with full range of motion, no step-offs, no JVD, no carotid bruit, no thyromegaly, trachea midline. LYMPH NODES: no cervical or supraclavicular lymphadenopathy. SKIN: [place], warm and dry, ecchymoses right posterior medial knee, abrasion anterior tibia. HEART: regular rate and rhythm, S1-S2, no murmur, no rubs or gallops, brisk capillary refill, no edema LUNGS: clear to auscultation bilaterally, no coarseness crackles or wheezing, no cough present CHEST: Symmetrical movement, no accessory muscle use, good tidal volume, no pain to AP and lateral compression. ABDOMEN: Soft, no distention, no abdominal tenderness, no guarding or pe ritoneal signs, no organomegaly, no flank or suprapubic tenderness, active bowel tones, pelvis stable to AP and lateral compression BACK: Normal curvature, nontender to palpation. EXTREMITIES: moves all extremities, strength is 5/5 and symmetrical, hematoma medial knee joint with ecchymosis, no joint effusion evident, popliteal tenderness on palpation, medial and and lateral collateral ligaments are stable, calf pain with anterior drawer limiting evaluation, posterior drawer sign negative, calf muscles remains soft and pliable, full range of motion ankle and foot with distal CMS intact. NEUROLOGIC: AAO x4, no focal cranial nerves II-XII grossly intact, TS decreased sensation proximal lateral lower leg approximately 10-12 cm, hearing grossly normal to speech. PSYCH: Good judgment, good insight, linear thought process, cooperative, appropriate with stable behavior Objective Labs Result Diagrams: 11/05/19 16:20 11/05/19 16:20 Labs: Laboratory Results - last 24 hr 11/05/19 11/05/19 11/05/19 16:20 16:20 16:20 WBC 9.7 RBC 4.58 Hgb 15.0 Hct 43.0 MCV 94.1 MCH 32.8 MCHC 34.8 RDW 13.9 Plt Count 206 Neut % (Auto) 49.3 L Lymph % (Auto) 40.4 H [place] % (Auto) 8.3 Eos % (Auto) 1.5 L Baso % (Auto) 0.5 Neut # (Auto) 4800 Lymph # (Auto) 3900 [place] # (Auto) 800 Eos # (Auto) 100 Baso # (Auto) 100 PT 11.6 INR 1.0 APTT 28 Sodium Potassium Chloride Carbon Dioxide BUN Creatinine Estimated GFR BUN/Creatinine Ratio Glucose Lactate 0.8 Calcium Total Bilirubin AST ALT Alkaline Phosphatase Total Creatine Kinase Total Protein Albumin Globulin Albumin/Globulin Ratio Lipase Ethyl Alcohol COVID-19 PCR Blood Type Antibody Screen 11/05/19 11/05/19 11/05/19 16:20 16:20 16:20 WBC RBC Hgb Hct MCV MCH MCHC RDW Plt Count Neut % (Auto) Lymph % (Auto) [place] % (Auto) Eos % (Auto) Baso % (Auto) Neut # (Auto) Lymph # (Auto) [place] # (Auto) Eos # (Auto) Baso # (Auto) PT INR APTT Sodium 138 Potassium 3.7 Chloride 103 Carbon Dioxide 31 BUN 13 Creatinine 1.27 H Estimated GFR > 60.0 BUN/Creatinine Ratio 10.2 Glucose 91 Lactate Calcium 9.1 Total Bilirubin 0.6 AST 40 ALT 27 Alkaline Phosphatase 70 Total Creatine Kinase 1090 H Total Protein 7.1 Albumin 4.5 Globulin 2.6 Albumin/Globulin Ratio 1.7 Lipase 56 Ethyl Alcohol < 10 COVID-19 PCR Blood Type O Positive Antibody Screen Negative 11/05/19 11/05/19 19:48 20:10 WBC RBC Hgb Hct MCV MCH MCHC RDW Plt Count Neut % (Auto) Lymph % (Auto) [place] % (Auto) Eos % (Auto) Baso % (Auto) Neut # (Auto) Lymph # (Auto) [place] # (Auto) Eos # (Auto) Baso # (Auto) PT INR APTT Sodium Potassium Chloride Carbon Dioxide BUN Creatinine Estimated GFR BUN/Creatinine Ratio Glucose Lactate Calcium Total Bilirubin AST ALT Alkaline Phosphatase Total Creatine Kinase 983 H Total Protein Albumin Globulin Albumin/Globulin Ratio Lipase Ethyl Alcohol COVID-19 PCR Negative Blood Type Antibody Screen Assessment & Plan Assessment & Plan narrative: Sepsis 29-year-old male patient who had a 600 lb plastic 2 fall on to his left leg and roll upon does abdomen chest and presents to the ER with chief complaint of left leg pain with popliteal and medial knee swelling associated ecchymosis but no acute fracture or dislocation or evidence of joint effusion. 1. Trauma, Crush injury left leg, present on admission, active -patient is ambulatory post injury, distal CMS intact. Pain on palpation medial knee and in the calf which remains soft and pliable. -left lower extremity neurovascular function remains intact except for area of decreased sensation which is stable left lateral leg. -Dr. Joyce has agreed to consult, we appreciate his evaluation and recommendations. -elevate legs on pillows apply ice -ordered neurovascular checks every 4 hours and as needed -Percocet 5-10 mg every 4 hours as needed for pain. 2. Elevated CK, present on admission, active -patient had dramatic crushing injury with elevated CK level at 1090. -patient received 2 L of IV fluid in the emergency department on re-evaluation is found to be 983. -will continue IV fluid normal saline at 125 cc/hour. -will check CK level in the morning. VTE prophylaxis: Enoxaparin IV fluid: 125 cc/hour Diet: Regular Code status: Full code, he designates ruby is significant other to be his surrogate decision maker. The patient is admitted to the hospital due to the extent of his injury and concern for compartment syndrome. The patient is admitted as observation status with expected length of stay to be less than 2 midnights. COVID-19 COVID-19 status: Negative Result date/Date tested (Pos, Neg/Pending): 11/05/19 Quality VTE Deep Vein Thrombosis/Pulmonary Embolism Present on Admission: No
[2019-11-06 00:50] VITALS: BP 118/69; PULSE 80; RESP 16; TEMP 36.8; O2SAT 97
[2019-11-06 02:22] LABS: Bacteria Urine None Seen; RBC Urine None Seen (0-5/HPF); WBC Urine None Seen (0-5/HPF)
[2019-11-06 02:24] LABS: Appearance Urine UA CLEAR; Bilirubin Urine UA NEGATIVE (NEGATIVE); Color Urine UA YELLOW; Glucose Urine UA NEGATIVE (Negative); Ketones Urine UA NEGATIVE (NEGATIVE); Leukocyte Esterase Urine UA NEGATIVE (NEGATIVE); Nitrite Urine UA NEGATIVE (Negative); Occult Blood Urine UA NEGATIVE (Negative); Protein Urine UA NEGATIVE (Negative); Urobilinogen Urine UA 0.2 E.U./dL (0.2)
[2019-11-06 02:32] LABS: Amorphous Sediment Urine 2+; Culture Indicated Urine Cult Not Indicated
[2019-11-06] MEDS: ACETAMINOPHEN 325 MG TABLET 650 MG PO (04:17)
[2019-11-06 04:25] VITALS: BP 122/67; PULSE 70; RESP 16; TEMP 36.5; O2SAT 98
[2019-11-06 04:48] VITALS: O2SAT 98
[2019-11-06] MEDS: SODIUM CHLORIDE 0.9% 1,000 ML 125 ML IV (05:20)
[2019-11-06 06:11] LABS: Add Manual Diff / Slide Review NO; Basophils Absolute Auto 0 /uL (0-100); Basophils Percent Auto 0.5 % (0-2); Eosinophils Absolute Auto 100 /uL (0-450); Eosinophils Percent Auto 1.5 % (2-4); Hematocrit 38.7 % (41-53); Hemoglobin 13.6 g/dL (13.5-17.5); Lymphocytes Absolute Auto 2600 /uL (1100-4500); Mean Corpuscular HGB Conc 35.2 % (30-36); Monocytes Absolute Auto 900 /uL (0-900); Monocytes Percent Auto 9.9 % (3-14); Neutrophils Absolute Auto 5900 /uL (1500-7000); Neutrophils Percent Auto 61.1 % (50-75); Platelet Count 172 X10^3/uL (150-400); Red Blood Cell Count 4.12 X10^6/uL (4.5-5.9); Red Cell Distribution Width 13.7 % (11.6-14.8); White Blood Cell Count 9.6 X10^3/uL (4.5-11.0)
[2019-11-06 06:14] LABS: BUN Creatinine Ratio 12.1 (6-22); Blood Urea Nitrogen 13 mg/dL (9-20); Calcium 8.3 mg/dL (8.4-10.2); Carbon Dioxide 27 mmol/L (22-32); Chloride 108 mmol/L (98-107); Estimated Glomerular Filt Rate > 60.0 mL/min (>60); Glucose 105 mg/dL (70-100); HEMOLYSIS < 15 (0-50); Potassium 4.2 mmol/L (3.4-5.1); Sodium 137 mmol/L (137-145)
--- NOTE | 2019-11-06 06:31 | PC.NURSE ---
NOC NOTE: Pt has had left leg elevated and ice packs to leg. PRN APAP given x 1 for c/o pain 5/10 and he declined anything stronger. Pedal pulse present, good sensation to LLE except to an area on the lateral aspect of the knee that patient reports a in ability to feel sharp pain but feel pressure. IVF running as ordered. Calf measurement at 0400 was 42cm, up from 38cm, calf remains soft but is tender to touch, this was reported to FAVIOLA Her.
[2019-11-06 07:44] VITALS: BP 120/70; PULSE 65; RESP 16; TEMP 36.8; O2SAT 98
--- NOTE | 2019-11-06 07:56 | P.CONS_ITS ---
History of Present Illness Consult details Date Patient Seen: 11/06/19 Time Patient Seen: 07:56 Chief complaint: large pipe fell on left leg Reason for consult: crush vivianay left leg Narrative: Patient is 29-year-old male who had a approximately 600 lb plastic type fall onto his left leg while at work. The patient states a 600 lb plastic tube fell onto his right leg and rolled over him to the abdomen and chest. Sustained a crushing injury to the left leg and upon arrival to the ER was able to ambulate on the leg. His chief complaint is left knee and proximal lower leg pain greatest over the medial aspect of the knee with altered sensation lateral to the tibial tubercle where he can feel pressure but not sharp. His pain has been controlled overnight with occassionall tylenol. No increasing pain medicaiton requirements. Meds Home Medications and Allergies Home Medications Medication Instructions Recorded Confirmed Type No Known Home Medications 11/05/19 11/05/19 History Allergies Allergy/AdvReac Type Severity Reaction Status Date / Time No Known Drug Allergies Allergy Verified 11/05/19 18:44 Exam Vital Signs (past 8 hours): - 11/06/19 00:50 11/06/19 04:25 11/06/19 04:48 Temperature 98.3 F 97.7 F Pulse Rate 80 70 Respiratory Rate 16 16 Blood Pressure 118/69 122/67 Pulse Oximetry 97 98 98 11/06/19 07:44 Temperature 98.3 F Pulse Rate 65 Respiratory Rate 16 Blood Pressure 120/70 Pulse Oximetry 98 Oxygen Delivery Method Room Air Oxygen Flow Rate 0 Narrative Exam Narrative: Pain not out of proportion to exam, mild pain with passive stretch of the ankle and foot. Sensation intact throughout the left lower extremity with the exception of decreased acuity of sensation the lateral aspect proximal tibia. Palpable DP pulse. Foot is warm and well perfused. Objective Labs Result Diagrams: 11/06/19 05:49 11/06/19 05:49 Labs: Laboratory Results - last 24 hr 11/05/19 11/05/19 11/05/19 16:20 16:20 16:20 WBC 9.7 RBC 4.58 Hgb 15.0 Hct 43.0 MCV 94.1 MCH 32.8 MCHC 34.8 RDW 13.9 Plt Count 206 Neut % (Auto) 49.3 L Lymph % (Auto) 40.4 H [place] % (Auto) 8.3 Eos % (Auto) 1.5 L Baso % (Auto) 0.5 Neut # (Auto) 4800 Lymph # (Auto) 3900 [place] # (Auto) 800 Eos # (Auto) 100 Baso # (Auto) 100 PT 11.6 INR 1.0 APTT 28 Sodium Potassium Chloride Carbon Dioxide BUN Creatinine Estimated GFR BUN/Creatinine Ratio Glucose Lactate 0.8 Calcium Total Bilirubin AST ALT Alkaline Phosphatase Total Creatine Kinase Total Protein Albumin Globulin Albumin/Globulin Ratio Lipase Urine Color Urine Appearance Urine pH Ur Specific [place] Urine Protein Urine Glucose (UA) Urine Ketones Urine Occult Blood Urine Nitrate Urine Bilirubin Urine Urobilinogen Ur Leukocyte Esterase Urine RBC Urine WBC Amorphous Sediment Urine Bacteria Ur Culture Indicated? Ethyl Alcohol COVID-19 PCR Blood Type Antibody Screen 11/05/19 11/05/19 11/05/19 16:20 16:20 16:20 WBC RBC Hgb Hct MCV MCH MCHC RDW Plt Count Neut % (Auto) Lymph % (Auto) [place] % (Auto) Eos % (Auto) Baso % (Auto) Neut # (Auto) Lymph # (Auto) [place] # (Auto) Eos # (Auto) Baso # (Auto) PT INR APTT Sodium 138 Potassium 3.7 Chloride 103 Carbon Dioxide 31 BUN 13 Creatinine 1.27 H Estimated GFR > 60.0 BUN/Creatinine Ratio 10.2 Glucose 91 Lactate Calcium 9.1 Total Bilirubin 0.6 AST 40 ALT 27 Alkaline Phosphatase 70 Total Creatine Kinase 1090 H Total Protein 7.1 Albumin 4.5 Globulin 2.6 Albumin/Globulin Ratio 1.7 Lipase 56 Urine Color Urine Appearance Urine pH Ur Specific [place] Urine Protein Urine Glucose (UA) Urine Ketones Urine Occult Blood Urine Nitrate Urine Bilirubin Urine Urobilinogen Ur Leukocyte Esterase Urine RBC Urine WBC Amorphous Sediment Urine Bacteria Ur Culture Indicated? Ethyl Alcohol < 10 COVID-19 PCR Blood Type O Positive Antibody Screen Negative 11/05/19 11/05/19 11/06/19 19:48 20:10 02:10 WBC RBC Hgb Hct MCV MCH MCHC RDW Plt Count Neut % (Auto) Lymph % (Auto) [place] % (Auto) Eos % (Auto) Baso % (Auto) Neut # (Auto) Lymph # (Auto) [place] # (Auto) Eos # (Auto) Baso # (Auto) PT INR APTT Sodium Potassium Chloride Carbon Dioxide BUN Creatinine Estimated GFR BUN/Creatinine Ratio Glucose Lactate Calcium Total Bilirubin AST ALT Alkaline Phosphatase Total Creatine Kinase 983 H Total Protein Albumin Globulin Albumin/Globulin Ratio Lipase Urine Color Yellow Urine Appearance Clear Urine pH 7.0 Ur Specific [place] 1.020 Urine Protein Negative Urine Glucose (UA) Negative Urine Ketones Negative Urine Occult Blood Negative Urine Nitrate Negative Urine Bilirubin Negative Urine Urobilinogen 0.2 Ur Leukocyte Esterase Negative Urine RBC None seen Urine WBC None seen Amorphous Sediment 2+ Urine Bacteria None seen Ur Culture Indicated? Cult not indicated Ethyl Alcohol COVID-19 PCR Negative Blood Type Antibody Screen 11/06/19 11/06/19 05:49 05:49 WBC 9.6 RBC 4.12 L Hgb 13.6 Hct 38.7 L MCV 94.0 MCH 33.0 MCHC 35.2 RDW 13.7 Plt Count 172 Neut % (Auto) 61.1 Lymph % (Auto) 27.0 [place] % (Auto) 9.9 Eos % (Auto) 1.5 L Baso % (Auto) 0.5 Neut # (Auto) 5900 Lymph # (Auto) 2600 [place] # (Auto) 900 Eos # (Auto) 100 Baso # (Auto) 0 PT INR APTT Sodium 137 Potassium 4.2 Chloride 108 H Carbon Dioxide 27 BUN 13 Creatinine 1.07 Estimated GFR > 60.0 BUN/Creatinine Ratio 12.1 Glucose 105 H Lactate Calcium 8.3 L Total Bilirubin AST ALT Alkaline Phosphatase Total Creatine Kinase Total Protein Albumin Globulin Albumin/Globulin Ratio Lipase Urine Color Urine Appearance Urine pH Ur Specific [place] Urine Protein Urine Glucose (UA) Urine Ketones Urine Occult Blood Urine Nitrate Urine Bilirubin Urine Urobilinogen Ur Leukocyte Esterase Urine RBC Urine WBC Amorphous Sediment Urine Bacteria Ur Culture Indicated? Ethyl Alcohol COVID-19 PCR Blood Type Antibody Screen Assessment & Plan Assessment & Plan narrative: Patient is a 29-year-old male had a 600 lb plastic type onto his left leg while he was at work. He was admitted overnight for observation as well as hydration. I was consulted to evaluate for compartment syndrome. I have very low concern for compartment syndrome at this time. His pain has been well controlled with occasional Tylenol over night. He says his pain is about a 5/10 when cuts to its worse is currently about a 3/10. He does not have pain out of proportion to exam. He does not have any significant pain with passive stretch the ankle or foot. Mobilize with PT Follow-up to my clinic this week Time Spent With Patient Time with patient: 15-24 minutes
[2019-11-06 08:00] VITALS: O2SAT 98
--- NOTE | 2019-11-06 10:32 | PM.DS.1 ---
History of Present Illness History of Present Illness Date Patient Seen: 11/05/19 Chief complaint: large pipe fell on left leg Narrative: Written by Allen SALMERON: Mr. Jayesh Zabala is a 29-year-old male with no significant medical history who is ambulatory presenting to the ER following traumatic injury while working at the [employer]. The patient states a 600 lb plastic tube fell onto his right leg and rolled over him to the abdomen and chest. Sustained a crushing injury to the left leg and upon arrival to the ER had associated symptoms of abdominal muscle spasms. His chief complaint is left knee and proximal lower leg pain greatest over the medial aspect of the knee with altered sensation lateral to the tibial tubercle where he can feel pressure but not sharp. He reports he is able to bear weight following the accident and denies numbness or tingling or weakness in the left ankle or foot. He denies head injury, loss of conscious, neck or back injury. He denies complaints of chest pain or shortness of breath and has had no cough. He denies epigastric or abdominal pain, no heartburn or nausea or vomiting. He has no flank pain and had no difficulty urinating and denies frequency urgency or hematuria. Upon arrival to the ER the patient has heart rate of 79, blood pressure 144/88, respirations 16 saturating 99% on room air. Chest x-rays taken which finds no acute cardiopulmonary pathology and x-rays of the left tibia fibula finds no bony abnormalities. He has a white count of 9.7, hemoglobin of 15 and hematocrit of 30.0. His platelets are 206. His PT is 11.6 with an INR 1.0 and a PTT of 28. His electrolytes are all within normal limits and has a BUN of 13 and creatinine 1 point 2 7. His nonfasting glucose is 91. His liver functions are all within normal limits. Lactic acid 0.8 and his total CK was initially 10 90 that following 2 L of fluid has decreased to 983. In the ER the patient received cyclobenzaprine 10 mg for abdominal muscle spasms, morphine 4 mg x 2 2 L of saline and his tetanus was updated. Dr. Joyce was contacted and agreed to consult. Dr. Alcantara was notified as the patient was a modified trauma. Patient is admitted to the medicine service for crush injury of left lower extremity for neurovascular monitoring. The patient has no primary care provider. Discharge Providers Provider Date of admission: 11/05/19 21:13 Discharge Date: 11/06/19 Consults: 11/05/19 22:51 Consult to Discharge Planning Routine Comment: Consult to Occupational Therapy Evaluate & Treat Comment: Crest injury left lower extremity Physician Instructions: Evaluate and treat Consult to Physical Therapy Evaluate & Treat Comment: Crush injury left lower extremity Physician Instructions: Evaluate and Treat 11/06/19 00:31 Consult to Orthopedic Surgery Routine Comment: Consulting Provider: Logan Joyce Reason for consultation: Traumatic injury, crush injury left lower extremity Has provider been notified: Yes Discharge provider: Prema South DO Summary Hospital Course Discharge Diagnosis: 1. Acute work related trauma and crush injury to left leg, present on admission. Resolving. 2. Mild rhabdomyolysis, present on admission. Resolving. Hospital Course: Jayesh Zabala is a 29-year-old male patient who had a 600 lb plastic tube fall on to his left leg while at work and presented to the ED with left leg pain. 1. Acute work related trauma and crush injury to left leg, present on admission. Resolving. -Patient is ambulatory post injury with crutches. No clinical signs of compartment syndrome. Pain is not out of proportion to exam, distal pulses and neurovascular function intact, mild pain on palpation and left leg remains soft and pliable. -Continued physical and occupational therapy and evaluation. -consulted orthopedic surgery, Dr. Joyce, who recommends continued rest, ice, and elevation. Continue ambulation with crutches and pain control with acetaminophen 650 mg every 6 hours as needed and oxycodone 5 mg daily as needed for severe pain. Follow-up with Dr. Joyce next week in clinic. 2. Mild rhabdomyolysis, present on admission. Resolving. -Initial creatinine kinase 1090. Repeat creatinine kinase trending down now 922. -Received 2 L of normal saline in ED. Continued normal saline at 125 mL/hr. Discharged with instructions to continue to stay well hydrated. Exam Vital Signs (past 8 hours): - 11/06/19 04:25 11/06/19 04:48 11/06/19 07:44 Temperature 97.7 F 98.3 F Pulse Rate 70 65 Respiratory Rate 16 16 Blood Pressure 122/67 120/70 Pulse Oximetry 98 98 98 Oxygen Delivery Method Room Air Oxygen Flow Rate 0 Narrative Exam Narrative: General: Young male lying in bed and in no acute distress, well-developed, well-nourished, appropriately interactive. HEENT: Normocephalic, atraumatic. External ears without defect. Pupils equal, round, and reactive to light. Anicteric sclerae, moist conjunctivae, and no lid lag. Oropharynx free of erythema and cobble stoning with moist mucosa. Neck: Supple with full range of motion. No lymphadenopathy or thyromegaly. Cardiovascular: Regular rate and rhythm without murmurs, rubs, or gallops appreciated. Pulmonary: Clear to auscultation bilaterally without crackles, wheezes, or rhonchi. Normal respiratory effort with no use of accessory muscles. Abdomen: Soft, bowel sounds present, nontender, nondistended. No hepatosplenomegaly or masses appreciated. Extremities: No clubbing, cyanosis or edema of other extremities. Left leg soft, mild edema, large ecchmoysis on medial posterior aspect of left leg at knee, and small abrasion on anterior medial aspect of left leg. Skin: Normal temperature, turgor, and texture; no rash, ulcers, or subcutaneous nodules appreciated. Neurological: Cranial nerves grossly intact. Psychiatric: Normal mood and affect. Alert and oriented to person, place, and time. Objective Labs Result Diagrams: 11/06/19 05:49 11/06/19 05:49 Labs: Laboratory Results - last 24 hr 11/05/19 11/05/19 11/05/19 16:20 16:20 16:20 WBC 9.7 RBC 4.58 Hgb 15.0 Hct 43.0 MCV 94.1 MCH 32.8 MCHC 34.8 RDW 13.9 Plt Count 206 Neut % (Auto) 49.3 L Lymph % (Auto) 40.4 H [place] % (Auto) 8.3 Eos % (Auto) 1.5 L Baso % (Auto) 0.5 Neut # (Auto) 4800 Lymph # (Auto) 3900 [place] # (Auto) 800 Eos # (Auto) 100 Baso # (Auto) 100 PT 11.6 INR 1.0 APTT 28 Sodium Potassium Chloride Carbon Dioxide BUN Creatinine Estimated GFR BUN/Creatinine Ratio Glucose Lactate 0.8 Calcium Total Bilirubin AST ALT Alkaline Phosphatase Total Creatine Kinase Total Protein Albumin Globulin Albumin/Globulin Ratio Lipase Urine Color Urine Appearance Urine pH Ur Specific [place] Urine Protein Urine Glucose (UA) Urine Ketones Urine Occult Blood Urine Nitrate Urine Bilirubin Urine Urobilinogen Ur Leukocyte Esterase Urine RBC Urine WBC Amorphous Sediment Urine Bacteria Ur Culture Indicated? Ethyl Alcohol COVID-19 PCR Blood Type Antibody Screen 11/05/19 11/05/19 11/05/19 16:20 16:20 16:20 WBC RBC Hgb Hct MCV MCH MCHC RDW Plt Count Neut % (Auto) Lymph % (Auto) [place] % (Auto) Eos % (Auto) Baso % (Auto) Neut # (Auto) Lymph # (Auto) [place] # (Auto) Eos # (Auto) Baso # (Auto) PT INR APTT Sodium 138 Potassium 3.7 Chloride 103 Carbon Dioxide 31 BUN 13 Creatinine 1.27 H Estimated GFR > 60.0 BUN/Creatinine Ratio 10.2 Glucose 91 Lactate Calcium 9.1 Total Bilirubin 0.6 AST 40 ALT 27 Alkaline Phosphatase 70 Total Creatine Kinase 1090 H Total Protein 7.1 Albumin 4.5 Globulin 2.6 Albumin/Globulin Ratio 1.7 Lipase 56 Urine Color Urine Appearance Urine pH Ur Specific [place] Urine Protein Urine Glucose (UA) Urine Ketones Urine Occult Blood Urine Nitrate Urine Bilirubin Urine Urobilinogen Ur Leukocyte Esterase Urine RBC Urine WBC Amorphous Sediment Urine Bacteria Ur Culture Indicated? Ethyl Alcohol < 10 COVID-19 PCR Blood Type O Positive Antibody Screen Negative 11/05/19 11/05/19 11/06/19 19:48 20:10 02:10 WBC RBC Hgb Hct MCV MCH MCHC RDW Plt Count Neut % (Auto) Lymph % (Auto) [place] % (Auto) Eos % (Auto) Baso % (Auto) Neut # (Auto) Lymph # (Auto) [place] # (Auto) Eos # (Auto) Baso # (Auto) PT INR APTT Sodium Potassium Chloride Carbon Dioxide BUN Creatinine Estimated GFR BUN/Creatinine Ratio Glucose Lactate Calcium Total Bilirubin AST ALT Alkaline Phosphatase Total Creatine Kinase 983 H Total Protein Albumin Globulin Albumin/Globulin Ratio Lipase Urine Color Yellow Urine Appearance Clear Urine pH 7.0 Ur Specific [place] 1.020 Urine Protein Negative Urine Glucose (UA) Negative Urine Ketones Negative Urine Occult Blood Negative Urine Nitrate Negative Urine Bilirubin Negative Urine Urobilinogen 0.2 Ur Leukocyte Esterase Negative Urine RBC None seen Urine WBC None seen Amorphous Sediment 2+ Urine Bacteria None seen Ur Culture Indicated? Cult not indicated Ethyl Alcohol COVID-19 PCR Negative Blood Type Antibody Screen 11/06/19 11/06/19 05:49 05:49 WBC 9.6 RBC 4.12 L Hgb 13.6 Hct 38.7 L MCV 94.0 MCH 33.0 MCHC 35.2 RDW 13.7 Plt Count 172 Neut % (Auto) 61.1 Lymph % (Auto) 27.0 [place] % (Auto) 9.9 Eos % (Auto) 1.5 L Baso % (Auto) 0.5 Neut # (Auto) 5900 Lymph # (Auto) 2600 [place] # (Auto) 900 Eos # (Auto) 100 Baso # (Auto) 0 PT INR APTT Sodium 137 Potassium 4.2 Chloride 108 H Carbon Dioxide 27 BUN 13 Creatinine 1.07 Estimated GFR > 60.0 BUN/Creatinine Ratio 12.1 Glucose 105 H Lactate Calcium 8.3 L Total Bilirubin AST ALT Alkaline Phosphatase Total Creatine Kinase Total Protein Albumin Globulin Albumin/Globulin Ratio Lipase Urine Color Urine Appearance Urine pH Ur Specific [place] Urine Protein Urine Glucose (UA) Urine Ketones Urine Occult Blood Urine Nitrate Urine Bilirubin Urine Urobilinogen Ur Leukocyte Esterase Urine RBC Urine WBC Amorphous Sediment Urine Bacteria Ur Culture Indicated? Ethyl Alcohol COVID-19 PCR Blood Type Antibody Screen Discharge Plan Discharge Plan Patient Disposition: Home Discharge comment: You are being discharged home. You sustained a crush injury at work. You have no fractures of your left leg. Please continue to elevate your leg and ice frequently (no more than 20 minutes at a time). Continue using crutches for ambulation and take it easy. Please follow-up with orthopedic surgery, Dr. Joyce, next week for follow-up and re-evaluation of your left leg. If your left leg pain worsens or began and swelling significantly please seek medical attention immediately. Discharge orders & Medications Prescriptions: New acetaminophen 325 mg Tablet 650 mg PO Q6HR PRN (Reason: Fever/Mild Pain (1-3)) Qty: 30 RF: 0 oxycodone-acetaminophen 5-325 mg Tablet 1 tab PO DAILY PRN (Reason: Pain, Severe) Qty: 5 RF: 0 Follow up/Referrals: Logan Joyce MD [Physician] - 11/10/19 10:10 am (appt:11/09 @ 10:[address] joyce @ [address] [place] [address] place please arrive 15minutes prior to your scheduled appointment) Diet/Activity/Treatments Diet: Diet as Tolerated and Regular Activity: Activity as tolerated with crutches Visit Report/Discharge Packet Instructions: How To Perform RICE (Rest, Ice, Compress, Elevate), DI for Prescription Opioid Use, DI for Crush Injury, Oxycodone/Acetaminophen (By mouth) Visit Report Forms: Patient Portal/API, Stroke Signs & Symptoms Discharge Data Attending Provider: Allen Her Admit Date/Time: 11/05/19 21:13 Quality VTE Deep Vein Thrombosis/Pulmonary Embolism Present on Admission: No
[2019-11-06 10:39] LABS: Creatine Kinase 922 U/L (55-170)
[2019-11-06] MEDS: ENOXAPARIN 40 MG/0.4 ML SYRINGE SUBCUT (10:44)
[2019-11-06] MEDS: OXYCODONE/ACETAMINOPHEN 5/325 TABLET 1 TAB PO (10:44)
[2019-11-06] MEDS: DOCUSATE 100 MG CAPSULE PO (10:44)
--- NOTE | 2019-11-06 11:11 | PT.IIE ---
Surgical History (Last Reviewed 11/06/19 @ 00:17 by FAVIOLA Ramachandran) History of foot surgery (Acute) History of surgery on left wrist (Acute) Medical History (Last Updated 11/06/19 @ 00:17 by FAVIOLA Ramachandran) No significant past medical history (Acute) Physical Therapy Inpatient Evaluation/Re-Eval M1 PT/OT-IP Prior Functional Status Start: 11/06/19 08:50 Freq: NEEDED Status: Active Protocol: Document 11/06/19 09:27 HH (Rec: 11/06/19 11:11 [email or web address]) Medical Review Prior Functional Status Medical History Reviewed Yes Diet/Fluid Consistency Regular Communication no deficits noted Mobility and Gait independent for all mobility. 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 Pt used crutches before for his L broken foot injury 2 years ago from [employer]. Activities of Daily Living and IADL's independent for all ADLs and IADLs Social History Household Members significant other,children Living Arrangements House Number of Floors (Floors) One Floor Number of Stairs To Enter/Railing? 4 ELLEN to front entrance 4 ELLEN with L rail Home Environment Standard Height Toilet,Tub/ Shower Home Equipment Crutches,Hand Held Shower,Grab Bars In Shower Employment Status [employer] Employed Additional Social History Comment Pt lives with his SO and 3 children (12, 8 and 7 yo) in [facility]. 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 M2 PT-IP Current Condition Start: 11/06/19 08:50 Freq: NEEDED Status: Active Protocol: Document 11/06/19 09:27 HH (Rec: 11/06/19 11:11 [email or web address]) Physical Therapy Current Condition Current Condition Evaluation Date 11/06/19 Treatment Diagnosis Crush injury on L leg, difficulty in walking Onset Date 11/05/19 Weight Bearing Status Weight Bearing Status Weight Bear as Tolerated M3 PT-IP Subjective Start: 11/06/19 08:50 Freq: NEEDED Status: Active Protocol: Document 11/06/19 09:27 HH (Rec: 11/06/19 11:11 [email or web address]) Subjective Physical Therapy Visit Type Type Initial Evaluation Visit Start Time 09:27 Visit Stop Time 10:07 Total Visit Minutes [address] Joyce consultation noted I was consulted to evaluate for compartment syndrome. I have very low concern for compartment syndrome at this time. His pain has been well controlled with occasional Tylenol over night. Mobilize with PT CK value downtrending from 1090 to 922 Physical Therapy Visit Comments Patient Comments My legs hurt and pain at 3-4/ 10, 5/10 with mobilization Patient Goals To return home safe Therapy Pain Assessment Pain When Pain Assessed During Mobility Pain Present Pain Present Pain Reported Location left leg Intensity 5 Scale Used Numeric (0 - 10) Description Aching,Acute,Pressure Pain Behaviors Facial Grimacing Pain Management Techniques Apply Cold,Timing of Activity with Medications M4 PT-IP Mobility and Gait Start: 11/06/19 08:50 Freq: NEEDED Status: Active Protocol: Document 11/06/19 09:27 (Rec: 11/06/19 11:11 [email or web address]) PT-Bed Mobility Assessment Supine to Sit Supine to Sit Standby Assistance Sit to Supine Sit to Supine Standby Assistance Scooting Scooting to Edge of Bed Standby Assistance PT-Transfer Assessment Sit to and From Stand Sit to and from Stand Standby Assistance,Use of Upper Extremities Equipment Transfer Assistive Device Gait Belt,Axillary Crutches Orthotic/Prosthetic Devices or Brace: No Transfers Transfer Destination Bed,Chair Transfer Technique Stand Step Pivot Transfer Ability Level of Assist Standby Assistance,Use of Upper Extremities Comments Mobility Comments Pt was in bed with LLE elevated upon PT arrival. S.O at bedside. Leftknee and proximal lower leg pain greatest over the medial aspect of the knee with altered sensation lateral to the tibial tubercle where he can feel pressure but not sharp. Significant hematoma noted at L distal hamstring medially. Pt was able to actively move ankle and knee with mildly increase with pain . Pt then sat up in long sitting position and pivot himself to L EOB SBA. Provided Axillary crutches to him and he was able to stand up with one leg and BUE pushed off from bed. He then started mobilizeing with 2 point pattern reciprocally with moderate WB on LLE d/t pain. Pt amb from his room 204 down to room 211 SBA but his pain cont increase. Pt then returned to his room with reduce WB on LLE. He was able to stand pivot transfer himself back to bed in supine SBA. Placed pillow underneath his LLE for elevation. Pain at 5/10. Call ligth placed within reach. Gait Assessment Gait Gait Assistance Required: Standby Assistance Distance (Feet) 210 Able to Maintain Weight Bearing Status Yes During Gait Assistive Devices Assistive Device Gait Belt,Axillary Crutches Orthotic/Prosthetic Devices or Brace: No Gait Deviations General Gait Pattern Antalgic,Decreased Stride Length,Decreased Feet Clearance,Flexed Trunk Factors Limiting Gait Function Factors Limiting Gait Function Decreased Activity Tolerance, Decreased Strength,Limited Range of Motion,Pain,Poor Balance Comments Gait Comments see mobility comments. PT-Balance Assessment Sitting Balance and Reactions Static Sitting Balance Ability Normal Dynamic Sitting Balance Ability Normal Standing Balance and Reactions Static Standing Balance Ability Normal Dynamic Standing Balance Ability Good Device Used axillary crutches M5 PT-IP Objective Assessments Start: 11/06/19 08:50 Freq: NEEDED Status: Active Protocol: Document 11/06/19 09:27 (Rec: 11/06/19 11:11 [email or web address]) Orientation Orientation/Cognition Level of Alertness Alert Orientation Name,Age,Birthday,Month,Date, Year,Day of Week,Place, Situation Language Function Ability No Deficits Noted Safety Awareness Understands Safety Issues Memory Description No Deficits Noted Gross Range of Motion Upper Extremity ROM Assessment Within Functional Limits Lower Extremity ROM Assessment Left Impaired Impairments pain with AROM on L knee and ankle. Strength Upper Extremity Strength Assessment Within Functional Limits Lower Extremity Strength Assessment Left Impaired Hip 4+/5 Knee 3-/5 Ankle 3-/5 Comments Strength Comments d/t pain Sensation Assessment Sensation Gross Sensation Left LE Impaired Light Touch Impaired Sensation Description Numbness,Tingling,Pain Comments Sensation Comments left knee and proximal lower leg pain greatest over the medial aspect of the knee with altered sensation lateral to the tibial tubercle where he can feel pressure but not sharp. Numbness noted laterally to tibial tuberosity . M6 PT-IP Treatment Start: 11/06/19 08:50 Freq: NEEDED Status: Active Protocol: Document 11/06/19 09:27 (Rec: 11/06/19 11:11 [email or web address]) Physical Therapy Treatment Exercises Exercises Ankle Pumps,Gluteal Sets,Quad Sets,Heel Slides Education Education Provided Precautions,Weight Bearing Status,Post-Op Packet,Safety Other Treatments Other Treatment Performed education role of PT, POC, continue to elevate his leg and ice frequently (no more than 20 minutes at a time). Continue using crutches for ambulation. Remind pt to seek for immediate medical attention when there's swelling in calf, warm to touch and SOB to prevent PE, DVT. M7 PT-IP Assessment and Plan Start: 11/06/19 08:50 Freq: NEEDED Status: Active Protocol: Document 11/06/19 09:27 (Rec: 11/06/19 11:11 [email or web address]) PT Summary Assessment and Plan Potential Rehabilitation Potential Excellent Status of Condition at Evaluation Stable Summary Impairments Pain,ROM,Strength,Balance, Sensation,Bed Mobility, Transfers,Gait,Activity Tolerance Progress Towards Goals Safe For Discharge Assessment Summary This is a low complexity evaluation for this 29yo male admitted to after a crush injury of left lower extremity for neurovascular monitoring. X-ray ruled out fx of LLE. Upon assessment, his left knee and proximal lower leg pain greatest over the medial aspect of the knee with altered sensation lateral to the tibial tubercle where he can feel pressure but not sharp. Numbness noted laterally to tibial tuberosity . Pt has AROM with L knee and ankle with pain and he is able to amb with axillary crutches . WB on LLE does increase his pain but tolerable. Spend time educating pt on elevating his leg and ice frequently (no more than 20 minutes at a time ). Continue using crutches for ambulation. Remind pt to seek for immediate medical attention when there's swelling in calf, warm to touch and SOB to prevent PE, DVT. Pt is now safe to go home with family assistance and he will have f/u with Dr. Joyce next week for further evaluation. Frequency of Treatment Frequency Of Treatment Discharge Recommendations To Nursing Amount of Assist Needed Standby Assistance Discharge Recommendations PT Discharge Recommendations Home with Assistance Transportation Needs at Discharge Private Vehicle
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
--- NOTE | 2019-11-06 12:31 | CM.DANOTE ---
Discharge Planning/Care Management DCP: assessment: case received, EMR reviewed and met with pt and his girlfriend Kourtney during Team Bedside Rounds. Introduced self and role. Pt is a 29 year old male who sustained a crush injury at work and admitted to care of hospitalist team last night. PCP: no one currently Payer: L and I/self insured (through pt's eimployer: Dai Reina) Consulting: Dr. Joyce, orthopedics. Pt has been up with PT, and is cleared for d/c today by Dr. South and Dr. Joyce. Pt will follow up with Dr. Joyce in clinic and is not to go back to work until after this visit. Kourtney confirms she is available to help with supportive care at home. PT Mo recommends bilateral crutches and order is obtained and given to Mo to issue from the [facility] therapy consigment closet. Pt reports he is very eager to return home. He has an appointment with his HR department tomorrow to go over specifics of his L&I plan and expected medical needs. CM Discharge Assessment Start: 11/06/19 12:28 Freq: Status: Active Protocol: Document 11/06/19 12:29 ITV (Rec: 11/06/19 12:30 ITV [id number]) Discharge Planning Assessment Advance Directives? No Advance Directives on File No History Provided By Patient,Medical Record Prior Living Arrangements House Household Members significant other Comment girl friend Kourtney Jl Independent with ADL's Yes Is patient alert and oriented? Yes Review Status In Process
--- NOTE | 2019-11-06 12:43 | PC.NURSE ---
SHIFT NOTE: PATIENT CLEARED BY PHYSICAL THERAPY, ORTHOPEDIC SURGEON AND HOSPITALIST FOR DISCHARGE. ISSUED CRUTCHES FROM PHYSICAL THERAPY. S.O. PRESENT FOR ALL DC HOME INSTRUCTIONS. REVIEWED F/U APPT WITH DR. SILVESTRE, SCRIPTS ELECTRONICALLY SENT TO [facility] IN [place]. PATIENT LEFT WITH ALL BELONGINGS AND PAPERWORK IN NO S/SX'S OF DISTRESS BY WC W/ COAL WASHER TENDER ESCORT WITH S.O. TO DRIVE HIM HOME.
== END 2019-11-06 12:45 | disposition home or self-care (01) ==
LOC: ED 21:13 → AC 21:14
PROVIDERS: Admitting Provider Nurse Practitioner Adult Health; Emergency Provider Nurse Practitioner Family; Referring Provider Emergency Medicine; Visit Provider Nurse Practitioner Adult Health
DX: S80.812A Abrasion, left lower leg, initial encounter (principal); S87.82XA Crushing injury of left lower leg, initial encounter; W20.8XXA Other cause of strike by thrown, projected or falling object, initial encounter; W18.39XA Other fall on same level, initial encounter; Y93.H3 Activity, building and construction; Y92.89 Other specified places as the place of occurrence of the external cause; Y99.0 Civilian activity done for income or pay; F17.210 Nicotine dependence, cigarettes, uncomplicated; Z11.59 Encounter for screening for other viral diseases
CPT/HCPCS: 36415; 71045; 73590; 80048; 80053; 80320; 81001; 81003; 82550; 83605; 83690; 85025; 85610; 85730; 86850; 86900; 86901; 87635; 96361; 96372; 96374; 96376; 97116; 97161; 97165; 97535; 99284; G0378; 90715; J1650; J2270

== ENCOUNTER 2022-05-14 09:29 | Observation (INO) | payer OTHER, SELFPAY ==
[2019-11-05 22:19] VITALS: BMI 28.2
[2022-05-14 09:46] VITALS: BP 170/92; PULSE 93; RESP 20; TEMP 36.6; O2SAT 98; BMI 28.2
--- NOTE | 2022-05-14 09:50 | DI.RAD.S_ITS ---
PROCEDURE: XR HAND RT MIN 3V INDICATIONS: Board fall on finger TECHNIQUE: 3 views of the hand(s) acquired. COMPARISON: None. FINDINGS: Bones: Minimal irregularity and fracture lucency at the tip of the 3rd finger tuft. No other displaced fracture or dislocation identified. Soft tissues: Soft tissue injury at the tip of 3rd finger. IMPRESSION: Suspected minimally displaced distal phalangeal tuft fracture with overlying soft tissue injury. Dictated by: Dangelo Cervantes M.D. on 05/14/2022 at 10:24 Approved by: Dangelo Cervantes M.D. on 05/14/2022 at 10:26
[2022-05-14 10:03] VITALS: PULSE 80
[2022-05-14] MEDS: ACETAMINOPHEN 325 MG TABLET 975 MG PO (10:13)
[2022-05-14] MEDS: TET,DIPH,PERTUSS(ACELL),VAC/PF 0.5 ML SYRINGE IM (10:14)
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
[2022-05-14] MEDS: MORPHINE 4 MG/ML INJ IV (11:21)
[2022-05-14] MEDS: ONDANSETRON 4 MG/2 ML INJ IV (11:22)
[2022-05-14 11:58] LABS: COVID19 -Nasal RAPID Negative (Negative)
[2022-05-14] MEDS: CEFAZOLIN 2 GM/100 ML PREMIX 100 ML IV ×2 (12:12→16:26)
[2022-05-14 13:28] VITALS: BP 136/90; PULSE 58; O2SAT 97
[2022-05-14 15:47] VITALS: BP 135/78; PULSE 78; RESP 14; O2SAT 99
--- NOTE | 2022-05-14 15:50 | P.HP_ITS ---
History of Present Illness History of Present Illness Date Patient Seen: 05/14/22 Time Patient Seen: 15:51 Date of Onset of Symptoms: 05/14/22 Chief complaint: bleeding cut tip of finger off Narrative: This is a 31-year-old was work when his right middle finger got slammed in a boating metal doc ramp area. He noted the acute onset of pain and bleeding from the tip of his right middle finger. He is left-hand dominant. He had a hold of a metal ramp in the other person lifted it on the other end and it slammed down onto his finger amputated the tip of his middle finger on the right. [facility] Medical History No significant past medical history Surgical History History of foot surgery History of surgery on left wrist Social History household members: significant other Smoking Status: Current some day smoker alcohol intake: current Meds Home Medications and Allergies Home Medications Medication Instructions Recorded Confirmed Type acetaminophen 325 mg tablet 650 mg PO Q6HR PRN Fever/Mild Pain 11/06/19 Rx (1-3) #30 tabs oxycodone-acetaminophen 5 mg-325 1 tab PO DAILY PRN Pain, Severe #5 11/06/19 Rx mg tablet tabs Allergies Allergy/AdvReac Type Severity Reaction Status Date / Time No Known Drug Allergies Allergy Verified 11/05/19 18:44 Review of Systems Review of Systems Narrative: Healthy otherwise, no fever chills, no previous injuries to his hand, no medications no allergies Exam Vital Signs (past 8 hours): - 05/14/22 09:46 05/14/22 10:03 05/14/22 13:28 Temperature 97.9 F Pulse Rate 93 H Pulse Rate [Right Radial] 80 Respiratory Rate 20 Blood Pressure 170/92 H 136/90 Pulse Oximetry 98 Oxygen Delivery Method Room Air 05/14/22 13:28 05/14/22 15:47 Temperature Pulse Rate 58 L 78 Pulse Rate [Right Radial] Respiratory Rate 14 Blood Pressure 135/78 Pulse Oximetry 97 99 Oxygen Delivery Method Room Air Oxygen Delivery Method Room Air Narrative Exam Narrative: HEENT is benign lungs are clear cor regular rate and rhythm abdomen soft and benign examination of his right upper extremity shows an open amputation of the right middle finger with loss of soft tissue at the distal tip of his middle finger there is some residual nail but there is missing distal pulp including subcutaneous tissue and skin with exposed bone, no other injuries in the right hand Objective Labs Labs: Laboratory Results - last 24 hr 05/14/22 11:10 SARS-CoV-2 (PCR) Negative AP and lateral right hand show a slightly comminuted distal tuft fracture of the middle finger with soft tissue defect Assessment & Plan Assessment and plan (1) Open avulsion fracture of distal phalanx of finger: Status: Acute (2) Crush injury: Status: Acute (3) Avulsion, finger tip: Status: Acute Plan I have recommended irrigation and debridement with completion amputation and closure. He has exposed distal phalanx fracture of his distal phalanx and soft tissue loss of his skin and subcutaneous tissues. Procedure options risks benefits and complications were discussed in detail. Going to proceed with that on an urgent basis. We discussed the fact that he has amputate partial amputation of his finger and I will do what we can to salvage the remaining viable tissue and provide him with adequate soft tissues coverage.
--- NOTE | 2022-05-14 15:57 | PM.OP.1 ---
Operative Date/Time/Diagnoses Date of procedure: 05/14/22 Time of procedure: 16:10 Pre-op diagnosis: Right middle finger partial tip amputation Post-op diagnosis: same Procedure & Clinicians Procedure: Right middle finger distal tip amputation completion and closure Same procedure as scheduled: Yes Indications: This is a 31-year-old who was injured at work when his finger tip got slammed in a metal ramp and he lost the tip of his distal finger. Came to the emergency room with an open amputation with exposed bone is brought to the operating room for completion amputation and closure. Surgeon: Loan Garcia Anesthesia Type: Local (Digital block) Operative Notes Findings: Partial amputation of the right middle finger tip, adequate closure with slight shortening Closure Type: primary Specimen(s): none sent Estimated Blood Loss (mL): 20 Blood products transfused: none Tourniquet time (min): 14 Procedure in detail: Patient is brought to the operating room. He had a time-out and right upper extremity middle finger was confirmed. He was given IV antibiotics. A dense digital block was performed with Marcaine without epinephrine. Additional local was also provided with lidocaine without epinephrine. His right upper extremity was prepped and draped in standard sterile fashion. Forearm tourniquet was applied and elevated to 250 mmHg. Tourniquet time 14 minutes. A soft tissue was meticulously irrigated and debrided. The pulp was carefully mobilized. The distal phalanx was shortened with a bone cutter. The nail was shortened slightly. The wound was meticulously irrigated with normal saline. Soft tissue was then pulled distally and was closed without tension with interrupted chromic. The wound was dressed sterilely. Patient was placed in a splint. Complications: none Post-operative Condition: stable Disposition: Acute Care Plan for aftercare: Dry dressing and finger splint. Return to clinic in 10 days for wound check and suture removal.
[2022-05-14 16:01] VITALS: BP 138/85; PULSE 79; RESP 18; TEMP 36.7; O2SAT 99; BMI 28.2
--- NOTE | 2022-05-14 16:47 | SUR.OPER ---
Supine on padded OR bed, head on pillow, arms secured on padded arm boards at <90 degrees abduction, legs uncrossed, safety belt at thigh, tape over blanket over lower legs.
[2022-05-14] MEDS: LIDOCAINE 1% 30 ML 20 ML INJ (17:13)
[2022-05-14] MEDS: BUPIVACAINE 0.25% (PF) VIAL 30 ML INJ (17:13)
== END 2022-05-14 18:30 | disposition home or self-care (01) ==
LOC: ED 13:39 → AC 14:01
PROVIDERS: Admitting Provider Orthopaedic Surgery; Emergency Provider Emergency Medicine; Referring Provider Emergency Medicine; Visit Provider Orthopaedic Surgery
PROC: (CPT 26951; principal; 2022-05-14 19:45)
DX: S62.632B Displaced fracture of distal phalanx of right middle finger, initial encounter for open fracture (principal); S67.192A Crushing injury of right middle finger, initial encounter; W20.8XXA Other cause of strike by thrown, projected or falling object, initial encounter; Y93.H3 Activity, building and construction; Y92.62 Dock or shipyard as the place of occurrence of the external cause; Z20.822 Contact with and (suspected) exposure to COVID-19; Z23 Encounter for immunization
CPT/HCPCS: 26951; 36415; 73130; 87635; 90471; 96365; 96375; 99284; C9803; G0378; 90715; J0690; J2270; J2405; J3490